=== PATIENT | male | born 2000 | race Two or more races ===

== ENCOUNTER 2024-09-05 08:29 | Emergency (ER) | payer SELFPAY ==
[~2024-09-05] VITALS: Ht 180.3 cm; Wt 65.0 kg
[2024-09-05 08:33] VITALS: O2SAT 100
[2024-09-05] MEDS: ONDANSETRON 4MG ODT PO ONE (09:04)
[2024-09-05 09:26] LABS: DIFFERENTIAL COMMENT 1; HEMATOCRIT. 48.1 % (42.0-52.0); MEAN CORPUSCULAR HEMOGLOBIN 29.3 pg (28.0-32.0); MEAN CORPUSCULAR HGB CONC 33.3 g/dL (31.0-37.0); MEAN CORPUSCULAR VOLUME 87.9 fL (80.0-94.0); MEAN PLATELET VOLUME 8.5 fl (7.4-10.4); PLATELET 248 x1000/uL (130-400); RED BLOOD CELL COUNT 5.47 mill/uL (4.7-6.1); WHITE BLOOD COUNT 13.2 x1000/uL (4.5-11.0)
[2024-09-05 09:42] LABS: ALANINE AMINOTRANSFERASE 15 IU/L (10-49); ASPARTATE AMINOTRANSFERASE 18 IU/L (<34); BILIRUBIN DIRECT 0.4 mg/dL (<=3.0); BILIRUBIN TOTAL 1.3 mg/dL (0.1-1.0); PROTEIN TOTAL 8.2 g/dL (6.0-8.3)
[2024-09-05 09:58] LABS: CHLORIDE 102 mEq/L (98-107); POTASSIUM 4.3 mEq/L (3.5-5.1); SODIUM 138 mEq/L (136-145)
[2024-09-05 09:59] LABS: CARBON DIOXIDE 24 mEq/L (21-32)
[2024-09-05 10:00] LABS: CALCIUM 9.9 mg/dL (8.7-10.4)
[2024-09-05 10:04] LABS: CREATININE 0.9 mg/dL (0.6-1.3); GLUCOSE 118 mg/dL (70-105); UREA NITROGEN BLOOD 12 mg/dL (9-23)
[2024-09-05 10:25] LABS: CLARITY URINE CLEAR (CLEAR); COLOR URINE YELLOW (YELLOW); GLUCOSE URINE NEGATIVE (NEGATIVE); KETONES URINE NEGATIVE (NEGATIVE); LEUKOCYTE ESTERASE URINE NEGATIVE (NEGATIVE); NITRITE URINE NEGATIVE (NEGATIVE); OCCULT BLOOD URINE NEGATIVE (NEGATIVE); PH URINE 5.5 (4.5-8.0); PROTEIN URINE NEGATIVE (NEGATIVE); SPECIFIC GRAVITY URINE 1.027 (1.005-1.030); UROBILINOGEN URINE 0.2 E.U./dL (0.2-1.0)
[2024-09-05] MEDS ORDERED: ONDA-239 PO (10:55)
[2024-09-05 11:08] VITALS: BP 140/68; PULSE 98; RESP 18; TEMP 36.72516; O2SAT 100
[2024-09-05 13:35] LABS: PLATELET ESTIMATE NORMAL
== END 2024-09-05 11:09 | disposition home or self-care (01) ==
LOC: ER 08:29
DX: R11.2 Nausea with vomiting, unspecified (principal); R10.13 Epigastric pain
CPT/HCPCS: 99283; 80076; 80048; 81003; 85025; 36415; Q0162